=== PATIENT | male | born 1970 | race Caucasian/White ===

== ENCOUNTER 2017-09-19 17:44 | Emergency (ER) | payer MEDICARE, MEDICAID ==
--- NOTE | 2017-09-19 18:49 | RAD ---
INDICATION: Left elbow injury. TECHNIQUE: 4 views of the left elbow were obtained. FINDINGS: There is a 3 mm calcific density which projects superficially over the posterior soft tissues at the level of the proximal ulna possibly representing a foreign body in or on the soft tissues. The bones are normal alignment. No joint effusion or fracture is seen. IMPRESSION: 1. NO EVIDENCE FOR FRACTURE. 2. POSSIBLE FOREIGN BODY IN OR ON THE SOFT TISSUES.
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
[2017-09-19 19:28] VITALS: BP 135/85
== END 2017-09-19 19:24 | disposition home or self-care (01) ==
LOC: ED 17:44
DX: S59.902A Unspecified injury of left elbow, initial encounter (principal); W22.8XXA Striking against or struck by other objects, initial encounter; Y92.9 Unspecified place or not applicable; Z87.891 Personal history of nicotine dependence; Z88.5 Allergy status to narcotic agent; Z88.0 Allergy status to penicillin
CPT/HCPCS: 99282

== ENCOUNTER 2018-12-29 18:48 | Emergency (ER) | payer MEDICARE, MEDICAID ==
[2018-12-29] MEDS ORDERED: Fluorescein Sodium TOPICAL* 1 MG TEST STRIP ONE (20:16)
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
[2018-12-29] MEDS ORDERED: Fluorescein Sodium TOPICAL* 1 MG TEST STRIP OPHTHALMIC ONE (20:39)
[2018-12-29] MEDS ORDERED: Erythromycin OPTH OINT* APPLIC OINT RIGHT EYE SCH (21:00)
[2018-12-29 22:29] VITALS: BP 133/88
== END 2018-12-29 22:27 | disposition home or self-care (01) ==
LOC: ED 18:48
DX: S05.91XA Unspecified injury of right eye and orbit, initial encounter (principal); W22.8XXA Striking against or struck by other objects, initial encounter; Y92.9 Unspecified place or not applicable; Z88.1 Allergy status to other antibiotic agents; Z88.5 Allergy status to narcotic agent; Z87.891 Personal history of nicotine dependence
CPT/HCPCS: 99282; A9270-GY